=== PATIENT | female | born 1955 | race Caucasian/White ===

== ENCOUNTER 2021-06-18 21:06 | Inpatient (IN) | payer MEDICARE ==
[2021-06-18] MEDS ORDERED: Ondansetron ODT 4 MG TAB PO PRN (21:12)
[2021-06-18] MEDS ORDERED: Ondansetron PF 4 MG/2 ML Vial IVP PRN (21:12)
[2021-06-18] MEDS ORDERED: Acetaminophen 325 MG TAB PO PRN (21:12)
[2021-06-18 22:25] VITALS: BMI 26.6
[2021-06-18] MEDS ORDERED: Benzonatate 100 MG CAP PO SCH (22:45)
[2021-06-19 06:24] LABS: Hemoglobin 14.1 g/dL (12.0-15.5); Mean Corpuscular HGB CONC 33.9 g/dL (32.0-36.0); Mean Corpuscular Volume 94.5 fl (81.6-98.3); Mean Platelet Volume 9.4 fl (7.4-10.4); Platelet Count 329 10x3/uL (150-450); RBC Distribution Width 14.5 % (11.5-14.5); White Blood Cell (WBC) Count 19.6 10x3/uL (3.5-10.5)
[2021-06-19 06:57] LABS: ALT (SGPT) 50 U/L (8-55); AST (SGOT) 53 U/L (5-34); Albumin 3.1 g/dL (3.4-4.8); Alkaline Phosphatase 132 U/L (40-110); Anion Gap 16 mmol/L (10-20); BUN (Urea Nitrogen) 15 mg/dL (9.8-20.1); Bilirubin, Total 0.7 mg/dL (0.2-1.2); Calc. Creatinine Clearance 107 mL/min (70-130); Calcium 8.6 mg/dL (7.8-10.44); Carbon Dioxide 20 mmol/L (23-31); Chloride 105 mmol/L (98-107); Globulin 2.9 g/dL (2.4-3.5); Glucose 119 mg/dL (80-115); Potassium 3.9 mmol/L (3.5-5.1); Sodium 137 mmol/L (136-145)
[2021-06-19 07:04] LABS: MDiff Complete? YES
[2021-06-19 07:07] LABS: Band 19 % (5-11); Lymphocytes 2 % (21-51); Monocytes 6 % (0-10); Neutrophil 73 % (42-75)
[2021-06-19 07:09] LABS: Platelet Morphology Comment Appears Adequate; RBC Morphology Normal; Toxic Granulation SLIGHT
[2021-06-19] MEDS ORDERED: guaiFENesin/Dextromethorphan 10 ML UDCUP PO PRN (08:13)
[2021-06-19] MEDS: Enoxaparin Sodium 40 MG/0.4 ML SYRINGE SC SCH ×2 (08:26→08:42)
[2021-06-19] MEDS: Guaifenesin DM 100-10/5 ML UDCUP PO PRN ×2 (08:52→19:28)
[2021-06-19] MEDS: Benzonatate 100 MG CAP PO SCH ×3 (08:54→22:26)
[2021-06-19] MEDS ORDERED: Dexamethasone 10 MG in Sodium Chloride 0.9% 50 ML IVPB SCH (09:00)
[2021-06-19] MEDS ORDERED: Dexamethasone 20 MG/5 ML VIAL SLOW IVP SCH (09:00)
[2021-06-19] MEDS ORDERED: REMDESIVIR 200 MG, Admixture Fee 1 EACH in Sodium Chloride 0.9% 250 ML 210 ML IV SCH (10:00)
[2021-06-19] MEDS ORDERED: Albuterol 200 PUFF (6.7GM INHALER) INH SCH (13:00)
[2021-06-19] MEDS: Azithromycin 500 MG in Sodium Chloride 0.9% 250 ML 250 ML IVPB SCH (13:13)
[2021-06-19] MEDS ORDERED: Ventolin HFA Inhaler 60 PUFF INHALER INH SCH (14:30)
[2021-06-19] MEDS: cefTRIAXone\\ROCEPHIN 2 GM in Sodium Chloride 0.9% 100 ML IVPB SCH (15:02)
[2021-06-19] MEDS: Dexamethasone 20 MG/5 ML VIAL SLOW IVP SCH (20:19)
[2021-06-19] MEDS: Mometasone 100 MCG/PUFF (1 INHALER) INH SCH (21:38)
[2021-06-19] MEDS: Ventolin HFA Inhaler 60 PUFF INHALER INH SCH (21:39)
[2021-06-19] MEDS ORDERED: REMDESIVIR REQUEST IVPB PRN (22:32)
[2021-06-20] MEDS: Ventolin HFA Inhaler 60 PUFF INHALER INH SCH ×6 (00:10→20:36)
[2021-06-20 01:10] LABS: Legionella Urinary Ag Negative (Negative); Strep pneumo Urine Ag NEGATIVE (NEGATIVE)
[2021-06-20] MEDS: Guaifenesin DM 100-10/5 ML UDCUP PO PRN ×2 (01:26→14:17)
[2021-06-20 04:53] LABS: Hemoglobin 13.8 g/dL (12.0-15.5); Mean Corpuscular HGB CONC 33.6 g/dL (32.0-36.0); Mean Corpuscular Hemoglobin 31.7 pg (27.0-33.0); Mean Corpuscular Volume 94.3 fl (81.6-98.3); Mean Platelet Volume 9.2 fl (7.4-10.4); Platelet Count 267 10x3/uL (150-450); RBC Distribution Width 14.4 % (11.5-14.5); Red Blood Cell (RBC) Count 4.36 10x6/uL (3.90-5.03)
[2021-06-20 05:01] LABS: Anion Gap 17 mmol/L (10-20); BUN (Urea Nitrogen) 16 mg/dL (9.8-20.1); Calc. Creatinine Clearance 105 mL/min (70-130); Calcium 8.6 mg/dL (7.8-10.44); Carbon Dioxide 23 mmol/L (23-31); Chloride 104 mmol/L (98-107); Glucose 133 mg/dL (80-115); Magnesium 2.2 mg/dL (1.6-2.6); Phosphorus 3.5 mg/dL (2.3-4.7); Potassium 3.7 mmol/L (3.5-5.1); Sodium 140 mmol/L (136-145)
[2021-06-20 06:53] LABS: MDiff Complete? YES
[2021-06-20 06:54] LABS: Platelet Morphology Comment Appears Adequate; RBC Morphology Normal
[2021-06-20 06:56] LABS: Band 8 % (5-11); Lymphocytes 3 % (21-51); Monocytes 13 % (0-10); Neutrophil 76 % (42-75)
[2021-06-20] MEDS: Mometasone 100 MCG/PUFF (1 INHALER) INH SCH ×2 (07:20→19:35)
[2021-06-20] MEDS: Cholecalciferol 1,000 UNITS (25 MCG) TAB PO SCH (09:50)
[2021-06-20] MEDS: Enoxaparin Sodium 40 MG/0.4 ML SYRINGE SC SCH (09:51)
[2021-06-20] MEDS: Dexamethasone 20 MG/5 ML VIAL SLOW IVP SCH ×2 (09:51→20:22)
[2021-06-20] MEDS: REMDESIVIR 100 MG, Admixture Fee 1 EACH in Sodium Chloride 0.9% 250 ML 230 ML IV SCH (09:51)
[2021-06-20] MEDS: Benzonatate 100 MG CAP PO SCH ×3 (09:51→20:21)
[2021-06-20] MEDS: Azithromycin 500 MG in Sodium Chloride 0.9% 250 ML 250 ML IVPB SCH (11:32)
[2021-06-20 13:05] LABS: Hemoglobin A1c 6.1 % (4.0-6.0)
[2021-06-20] MEDS: cefTRIAXone\\ROCEPHIN 2 GM in Sodium Chloride 0.9% 100 ML IVPB SCH (13:12)
[2021-06-21] MEDS: Ventolin HFA Inhaler 60 PUFF INHALER INH SCH ×6 (00:30→20:38)
[2021-06-21 05:16] LABS: Anion Gap 16 mmol/L (10-20); BUN (Urea Nitrogen) 20 mg/dL (9.8-20.1); Calc. Creatinine Clearance 109 mL/min (70-130); Carbon Dioxide 24 mmol/L (23-31); Chloride 104 mmol/L (98-107); Glucose 128 mg/dL (80-115); Magnesium 2.1 mg/dL (1.6-2.6); Phosphorus 4.3 mg/dL (2.3-4.7); Potassium 3.6 mmol/L (3.5-5.1); Sodium 140 mmol/L (136-145)
[2021-06-21 05:21] LABS: #Basophils 0.2 10x3/uL (0.0-0.2); #Monocytes 1.2 10x3/uL (0.0-1.1); #Neutrophils 14.2 10x3/uL (1.5-8.4); %Basophils 0.9 % (0.0-2.0); %Lymphocytes 5.1 % (18.0-47.0); %Monocytes 6.8 % (0.0-10.0); %Neutrophils 80.8 % (40.0-75.0); Hemoglobin 13.7 g/dL (12.0-15.5); Mean Corpuscular HGB CONC 34.2 g/dL (32.0-36.0); Mean Corpuscular Hemoglobin 31.9 pg (27.0-33.0); Mean Corpuscular Volume 93.3 fl (81.6-98.3); Mean Platelet Volume 9.2 fl (7.4-10.4); Platelet Count 163 10x3/uL (150-450); RBC Distribution Width 14.5 % (11.5-14.5); White Blood Cell (WBC) Count 17.6 10x3/uL (3.5-10.5)
[2021-06-21 06:20] LABS: MDiff Complete? YES
[2021-06-21 06:21] LABS: Platelet Morphology Comment Appears Adequate
[2021-06-21 06:24] LABS: RBC Morphology Normal
[2021-06-21 06:26] LABS: Band 7 % (5-11); Lymphocytes 7 % (21-51); Monocytes 8 % (0-10); Neutrophil 78 % (42-75)
[2021-06-21] MEDS: Mometasone 100 MCG/PUFF (1 INHALER) INH SCH ×2 (07:33→19:57)
[2021-06-21] MEDS: Cholecalciferol 1,000 UNITS (25 MCG) TAB PO SCH (08:57)
[2021-06-21] MEDS: REMDESIVIR 100 MG, Admixture Fee 1 EACH in Sodium Chloride 0.9% 250 ML 230 ML IV SCH (08:59)
[2021-06-21] MEDS: Dexamethasone 20 MG/5 ML VIAL SLOW IVP SCH ×2 (08:59→20:38)
[2021-06-21] MEDS: Enoxaparin Sodium 40 MG/0.4 ML SYRINGE SC SCH (09:00)
[2021-06-21] MEDS: Benzonatate 100 MG CAP PO SCH ×3 (09:00→19:57)
[2021-06-21] MEDS: Guaifenesin DM 100-10/5 ML UDCUP PO PRN ×2 (10:35→17:02)
[2021-06-21] MEDS: Azithromycin 500 MG in Sodium Chloride 0.9% 250 ML 250 ML IVPB SCH (11:19)
[2021-06-21] MEDS ORDERED: [UNRECOGNIZED DRUG - OTHER] IVPB PRN (12:27)
[2021-06-21] MEDS: cefTRIAXone\\ROCEPHIN 2 GM in Sodium Chloride 0.9% 100 ML IVPB SCH (13:02)
[2021-06-21] MEDS: BARICITINIB 2 MG TAB PO SCH (14:57)
[2021-06-22] MEDS: Ventolin HFA Inhaler 60 PUFF INHALER INH SCH ×6 (00:23→20:01)
[2021-06-22 05:03] LABS: Anion Gap 16 mmol/L (10-20); BUN (Urea Nitrogen) 20 mg/dL (9.8-20.1); Calc. Creatinine Clearance 113 mL/min (70-130); Carbon Dioxide 24 mmol/L (23-31); Chloride 102 mmol/L (98-107); Glucose 122 mg/dL (80-115); Magnesium 2.1 mg/dL (1.6-2.6); Phosphorus 4.3 mg/dL (2.3-4.7); Potassium 3.9 mmol/L (3.5-5.1); Sodium 138 mmol/L (136-145)
[2021-06-22 05:10] LABS: ALT (SGPT) 49 U/L (8-55); AST (SGOT) 38 U/L (5-34); Albumin 2.7 g/dL (3.4-4.8); Alkaline Phosphatase 113 U/L (40-110); Bilirubin, Direct 0.5 mg/dL (0.1-0.3); Bilirubin, Total 0.8 mg/dL (0.2-1.2); Protein, Total 5.3 g/dL (5.8-8.1)
[2021-06-22 05:13] LABS: Hemoglobin 14.2 g/dL (12.0-15.5); Mean Corpuscular HGB CONC 34.5 g/dL (32.0-36.0); Mean Corpuscular Hemoglobin 32.1 pg (27.0-33.0); Platelet Count 128 10x3/uL (150-450); RBC Distribution Width 14.2 % (11.5-14.5); Red Blood Cell (RBC) Count 4.42 10x6/uL (3.90-5.03); White Blood Cell (WBC) Count 14.6 10x3/uL (3.5-10.5)
[2021-06-22 05:38] LABS: MDiff Complete? YES
[2021-06-22 05:41] LABS: Platelet Morphology Comment Appears Decreased; RBC Morphology Normal
[2021-06-22 05:47] LABS: Band 2 % (5-11); Lymphocytes 4 % (21-51); Monocytes 7 % (0-10); Neutrophil 87 % (42-75)
[2021-06-22] MEDS: Mometasone 100 MCG/PUFF (1 INHALER) INH SCH ×2 (06:44→19:17)
[2021-06-22] MEDS: REMDESIVIR 100 MG, Admixture Fee 1 EACH in Sodium Chloride 0.9% 250 ML 230 ML IV SCH (08:33)
[2021-06-22] MEDS: Benzonatate 100 MG CAP PO SCH ×3 (08:34→20:00)
[2021-06-22] MEDS: Cholecalciferol 1,000 UNITS (25 MCG) TAB PO SCH (08:34)
[2021-06-22] MEDS: Enoxaparin Sodium 40 MG/0.4 ML SYRINGE SC SCH (08:34)
[2021-06-22] MEDS: Dexamethasone 20 MG/5 ML VIAL SLOW IVP SCH ×2 (08:35→20:00)
[2021-06-22] MEDS: cefTRIAXone\\ROCEPHIN 2 GM in Sodium Chloride 0.9% 100 ML IVPB SCH (11:30)
[2021-06-22] MEDS: Azithromycin 500 MG in Sodium Chloride 0.9% 250 ML 250 ML IVPB SCH (12:05)
[2021-06-22] MEDS: BARICITINIB 2 MG TAB PO SCH (14:27)
[2021-06-23] MEDS: Ventolin HFA Inhaler 60 PUFF INHALER INH SCH ×6 (00:27→23:11)
[2021-06-23 06:10] LABS: Anion Gap 16 mmol/L (10-20); BUN (Urea Nitrogen) 19 mg/dL (9.8-20.1); Calc. Creatinine Clearance 107 mL/min (70-130); Calcium 8.1 mg/dL (7.8-10.44); Carbon Dioxide 26 mmol/L (23-31); Chloride 100 mmol/L (98-107); Glucose 137 mg/dL (80-115); Hemoglobin 15.2 g/dL (12.0-15.5); Magnesium 2.2 mg/dL (1.6-2.6); Mean Corpuscular HGB CONC 33.1 g/dL (32.0-36.0); Mean Corpuscular Hemoglobin 31.3 pg (27.0-33.0); Mean Corpuscular Volume 94.6 fl (81.6-98.3); Mean Platelet Volume 10.8 fl (7.4-10.4); Phosphorus 4.6 mg/dL (2.3-4.7); Platelet Count 119 10x3/uL (150-450); Potassium 4.2 mmol/L (3.5-5.1); RBC Distribution Width 13.8 % (11.5-14.5); Red Blood Cell (RBC) Count 4.85 10x6/uL (3.90-5.03); Sodium 138 mmol/L (136-145); White Blood Cell (WBC) Count 15.7 10x3/uL (3.5-10.5)
[2021-06-23 06:11] LABS: #Monocytes 1.1 10x3/uL (0.0-1.1); #Neutrophils 11.7 10x3/uL (1.5-8.4); %Basophils 0.1 % (0.0-2.0); %Lymphocytes 6.8 % (18.0-47.0); %Monocytes 7.2 % (0.0-10.0); %Neutrophils 74.3 % (40.0-75.0); Manual Diff?? YES
[2021-06-23 06:53] LABS: Band 14 % (5-11); Lymphocytes 5 % (21-51); Metamyelocyte 3 % (0-0); Monocytes 7 % (0-10); Reactive Lymphocytes 2 % (0-10)
[2021-06-23 06:54] LABS: Platelet Morphology Comment Appears Decreased
[2021-06-23] MEDS: Mometasone 100 MCG/PUFF (1 INHALER) INH SCH ×2 (07:09→20:16)
[2021-06-23] MEDS: Cholecalciferol 1,000 UNITS (25 MCG) TAB PO SCH (09:19)
[2021-06-23] MEDS: Enoxaparin Sodium 40 MG/0.4 ML SYRINGE SC SCH (09:19)
[2021-06-23] MEDS: Dexamethasone 20 MG/5 ML VIAL SLOW IVP SCH ×2 (09:19→20:35)
[2021-06-23] MEDS: REMDESIVIR 100 MG, Admixture Fee 1 EACH in Sodium Chloride 0.9% 250 ML 230 ML IV SCH (09:20)
[2021-06-23] MEDS: Benzonatate 100 MG CAP PO SCH ×3 (09:22→20:35)
[2021-06-23] MEDS: cefTRIAXone\\ROCEPHIN 2 GM in Sodium Chloride 0.9% 100 ML IVPB SCH (11:35)
[2021-06-23] MEDS: Azithromycin 500 MG in Sodium Chloride 0.9% 250 ML 250 ML IVPB SCH (12:43)
[2021-06-23] MEDS: BARICITINIB 2 MG TAB PO SCH (15:21)
[2021-06-24] MEDS: Benzonatate 100 MG CAP PO SCH ×4 (00:45→19:37)
[2021-06-24] MEDS: Ventolin HFA Inhaler 60 PUFF INHALER INH SCH ×6 (00:49→20:38)
[2021-06-24 07:22] LABS: Hemoglobin 15.9 g/dL (12.0-15.5); Mean Corpuscular HGB CONC 33.8 g/dL (32.0-36.0); Mean Corpuscular Hemoglobin 32.1 pg (27.0-33.0); Mean Corpuscular Volume 94.9 fl (81.6-98.3); Mean Platelet Volume 10.8 fl (7.4-10.4); Platelet Count 131 10x3/uL (150-450); RBC Distribution Width 14.2 % (11.5-14.5); Red Blood Cell (RBC) Count 4.95 10x6/uL (3.90-5.03); White Blood Cell (WBC) Count 17.6 10x3/uL (3.5-10.5)
[2021-06-24 07:23] LABS: MDiff Complete? YES; Manual Diff?? YES
[2021-06-24 07:46] LABS: Anion Gap 17 mmol/L (10-20); BUN (Urea Nitrogen) 23 mg/dL (9.8-20.1); Calc. Creatinine Clearance 107 mL/min (70-130); Calcium 8.8 mg/dL (7.8-10.44); Carbon Dioxide 25 mmol/L (23-31); Chloride 102 mmol/L (98-107); Glucose 121 mg/dL (80-115); Magnesium 2.2 mg/dL (1.6-2.6); Potassium 5.3 mmol/L (3.5-5.1); Sodium 139 mmol/L (136-145)
[2021-06-24] MEDS: Enoxaparin Sodium 40 MG/0.4 ML SYRINGE SC SCH (07:47)
[2021-06-24] MEDS: guaiFENesin/Codeine Phosphate 100 mg/10 mg 5 ml UD Cup PO PRN ×2 (07:47→19:36)
[2021-06-24] MEDS: Dexamethasone 20 MG/5 ML VIAL SLOW IVP SCH ×2 (07:47→19:37)
[2021-06-24] MEDS: Cholecalciferol 1,000 UNITS (25 MCG) TAB PO SCH (07:47)
[2021-06-24] MEDS: Mometasone 100 MCG/PUFF (1 INHALER) INH SCH ×2 (08:00→19:11)
[2021-06-24 08:38] LABS: Band 3 % (5-11); Lymphocytes 4 % (21-51); Monocytes 14 % (0-10); Neutrophil 76 % (42-75); Nucleated RBC 1 % (0); Reactive Lymphocytes 3 % (0-10)
[2021-06-24 08:48] LABS: Platelet Clumps SLIGHT; Platelet Morphology Comment Appears Adequate; RBC Morphology Normal
[2021-06-24] MEDS: cefTRIAXone\\ROCEPHIN 2 GM in Sodium Chloride 0.9% 100 ML IVPB SCH (11:35)
[2021-06-24] MEDS: Azithromycin 500 MG in Sodium Chloride 0.9% 250 ML 250 ML IVPB SCH (12:27)
[2021-06-24] MEDS: BARICITINIB 2 MG TAB PO SCH (14:52)
[2021-06-25] MEDS: Ventolin HFA Inhaler 60 PUFF INHALER INH SCH ×6 (01:00→23:25)
[2021-06-25] MEDS: Mometasone 100 MCG/PUFF (1 INHALER) INH SCH ×2 (05:59→18:09)
[2021-06-25 07:30] LABS: Hemoglobin 15.4 g/dL (12.0-15.5); Mean Corpuscular Hemoglobin 31.8 pg (27.0-33.0); Mean Corpuscular Volume 93.6 fl (81.6-98.3); Mean Platelet Volume 10.5 fl (7.4-10.4); Platelet Count 154 10x3/uL (150-450); RBC Distribution Width 14.1 % (11.5-14.5); Red Blood Cell (RBC) Count 4.84 10x6/uL (3.90-5.03); White Blood Cell (WBC) Count 19.6 10x3/uL (3.5-10.5)
[2021-06-25 07:45] LABS: MDiff Complete? YES
[2021-06-25 07:46] LABS: Anion Gap 16 mmol/L (10-20); BUN (Urea Nitrogen) 24 mg/dL (9.8-20.1); Calc. Creatinine Clearance 105 mL/min (70-130); Calcium 8.7 mg/dL (7.8-10.44); Carbon Dioxide 22 mmol/L (23-31); Chloride 101 mmol/L (98-107); Glucose 208 mg/dL (80-115); Potassium 5.3 mmol/L (3.5-5.1); Sodium 134 mmol/L (136-145)
[2021-06-25 07:47] LABS: ALT (SGPT) 39 U/L (8-55); AST (SGOT) 29 U/L (5-34); Albumin 2.9 g/dL (3.4-4.8); Alkaline Phosphatase 86 U/L (40-110); Bilirubin, Direct 0.3 mg/dL (0.1-0.3); Bilirubin, Total 0.6 mg/dL (0.2-1.2); Protein, Total 6.2 g/dL (5.8-8.1)
[2021-06-25 07:52] LABS: Magnesium 2.2 mg/dL (1.6-2.6)
[2021-06-25 07:55] LABS: Band 4 % (5-11); Monocytes 10 % (0-10); Myelocyte 1 % (0-0); Neutrophil 75 % (42-75); Reactive Lymphocytes 1 % (0-10)
[2021-06-25 07:57] LABS: Lymphocytes 8 % (21-51); Metamyelocyte 1 % (0-0)
[2021-06-25 07:58] LABS: Platelet Morphology Comment Appears Adequate; RBC Morphology Normal
[2021-06-25] MEDS: Benzonatate 100 MG CAP PO SCH ×4 (08:05→21:00)
[2021-06-25] MEDS: guaiFENesin/Codeine Phosphate 100 mg/10 mg 5 ml UD Cup PO PRN (08:05)
[2021-06-25] MEDS: Dexamethasone 20 MG/5 ML VIAL SLOW IVP SCH (08:05)
[2021-06-25] MEDS: Cholecalciferol 1,000 UNITS (25 MCG) TAB PO SCH (08:05)
[2021-06-25] MEDS: Enoxaparin Sodium 40 MG/0.4 ML SYRINGE SC SCH (08:05)
[2021-06-25] MEDS ORDERED: hydrALAZINE 20 MG/ML VIAL SLOW IVP PRN (10:22)
[2021-06-25] MEDS: Azithromycin 500 MG in Sodium Chloride 0.9% 250 ML 250 ML IVPB SCH (12:09)
[2021-06-25] MEDS: cefTRIAXone\\ROCEPHIN 2 GM in Sodium Chloride 0.9% 100 ML IVPB SCH (15:00)
[2021-06-25] MEDS: BARICITINIB 2 MG TAB PO SCH (15:06)
[2021-06-25] MEDS: HYDROcodone/Acetaminophen 5/325 mg Tablet PO PRN ×2 (15:06→21:22)
[2021-06-25] MEDS ORDERED: Melatonin 3 MG TAB PO PRN (17:28)
[2021-06-25] MEDS ORDERED: Senokot S 8.6-50 MG TAB PO PRN (17:29)
[2021-06-26] MEDS: Ventolin HFA Inhaler 60 PUFF INHALER INH SCH ×5 (03:11→21:58)
[2021-06-26] MEDS: guaiFENesin/Codeine Phosphate 100 mg/10 mg 5 ml UD Cup PO PRN ×3 (06:00→20:32)
[2021-06-26] MEDS: Mometasone 100 MCG/PUFF (1 INHALER) INH SCH ×2 (07:47→18:30)
[2021-06-26] MEDS: Cholecalciferol 1,000 UNITS (25 MCG) TAB PO SCH (08:37)
[2021-06-26] MEDS: Enoxaparin Sodium 40 MG/0.4 ML SYRINGE SC SCH (08:38)
[2021-06-26] MEDS: Dexamethasone 4 MG TAB PO SCH ×2 (08:38→16:04)
[2021-06-26] MEDS: Benzonatate 100 MG CAP PO SCH ×4 (08:41→21:04)
[2021-06-26] MEDS: HYDROcodone/Acetaminophen 5/325 mg Tablet PO PRN (09:07)
[2021-06-26] MEDS ORDERED: ALPRAZolam 0.25 MG TAB PO PRN (10:44)
[2021-06-26] MEDS: BARICITINIB 2 MG TAB PO SCH (14:08)
[2021-06-27] MEDS: Ventolin HFA Inhaler 60 PUFF INHALER INH SCH ×6 (01:30→23:49)
[2021-06-27] MEDS: Cholecalciferol 1,000 UNITS (25 MCG) TAB PO SCH (07:33)
[2021-06-27] MEDS: Dexamethasone 4 MG TAB PO SCH ×2 (07:33→16:21)
[2021-06-27] MEDS: Enoxaparin Sodium 40 MG/0.4 ML SYRINGE SC SCH (07:35)
[2021-06-27] MEDS: guaiFENesin/Codeine Phosphate 100 mg/10 mg 5 ml UD Cup PO PRN (07:36)
[2021-06-27] MEDS: Benzonatate 100 MG CAP PO SCH ×3 (08:01→19:33)
[2021-06-27] MEDS: Mometasone 100 MCG/PUFF (1 INHALER) INH SCH ×2 (09:47→19:40)
[2021-06-27] MEDS: BARICITINIB 2 MG TAB PO SCH (14:05)
[2021-06-27] MEDS: HYDROcodone/Acetaminophen 5/325 mg Tablet PO PRN (21:19)
[2021-06-28] MEDS: Ventolin HFA Inhaler 60 PUFF INHALER INH SCH ×4 (03:58→13:56)
[2021-06-28] MEDS: Mometasone 100 MCG/PUFF (1 INHALER) INH SCH (08:09)
[2021-06-28] MEDS: Cholecalciferol 1,000 UNITS (25 MCG) TAB PO SCH (08:37)
[2021-06-28] MEDS: Enoxaparin Sodium 40 MG/0.4 ML SYRINGE SC SCH (08:37)
[2021-06-28] MEDS: Dexamethasone 4 MG TAB PO SCH (08:37)
[2021-06-28] MEDS: Benzonatate 100 MG CAP PO SCH ×2 (08:47→15:13)
[2021-06-28 11:59] VITALS: BP 140/94; TEMP 97.9
== END 2021-06-28 15:53 | disposition home or self-care (01) | DRG 177 ==
LOC: CSHTELE 21:06
PROVIDERS: ADMIT Internal Medicine; ATTEND Internal Medicine
PROC: 8E0ZXY6 Isolation (ICD-10-PCS; 2021-06-18)
PROC: XW033E5 Introduction of Remdesivir Anti-infective into Peripheral Vein, Percutaneous Approach, New Technology Group 5 (ICD-10-PCS; principal; 2021-06-19)
PROC: 3E0333Z Introduction of Anti-inflammatory into Peripheral Vein, Percutaneous Approach (ICD-10-PCS; 2021-06-19)
PROC: XW0DXM6 Introduction of Baricitinib into Mouth and Pharynx, External Approach, New Technology Group 6 (ICD-10-PCS; 2021-06-21)
DX: U07.1 COVID-19 (principal); J12.82 Pneumonia due to coronavirus disease 2019; J96.01 Acute respiratory failure with hypoxia; J18.9 Pneumonia, unspecified organism; E87.1 Hypo-osmolality and hyponatremia; E87.5 Hyperkalemia; H92.02 Otalgia, left ear; E87.6 Hypokalemia
CPT/HCPCS: 36415; 71045; 80048; 80053; 80076; 83036; 83735; 83880; 84100; 84145; 85025; 85379; 86140; 87081; 87449; 87633; 87798; 87899; 93005; 93010; 93306; 93970; 94640; 94664; 94760; J0248; J0456; J0696; J1100; J1650; J3490; J7050; J8540

== ENCOUNTER 2021-09-01 14:26 | Outpatient (CLI) | payer BC | END 2021-09-01 14:27 | disposition home or self-care (01) | LOC: CSHMAMMO 14:26 | PROVIDERS: ATTEND Family Medicine | DX: Z12.31 Encounter for screening mammogram for malignant neoplasm of breast (principal); Z98.82 Breast implant status | CPT/HCPCS: 77063; 77067 ==